=== PATIENT | female | born 1980 | race Caucasian/White ===

== ENCOUNTER 2016-12-24 11:12 | Emergency (ER) | payer OTHER ==
[~2016-12-24] VITALS: Ht 162.6 cm; Wt 92.6 kg
[2016-12-24] MEDS ORDERED: BENADRYL50 MG PO (12:22)
[2016-12-24] MEDS ORDERED: PREDNISONE10 MG PO (12:22)
[2016-12-24 12:29] VITALS: BP 158/87
== END 2016-12-24 12:30 | disposition home or self-care (01) ==
LOC: EXP 11:12 → EME 11:12 → EXP 12:30
DX: S60.561A Insect bite (nonvenomous) of right hand, initial encounter (principal); S80.862A Insect bite (nonvenomous), left lower leg, initial encounter; S80.861A Insect bite (nonvenomous), right lower leg, initial encounter; S00.86XA Insect bite (nonvenomous) of other part of head, initial encounter; W57.XXXA Bitten or stung by nonvenomous insect and other nonvenomous arthropods, initial encounter
CPT/HCPCS: 99281; 99283